=== PATIENT | female | born 1960 | race American Indian/Alaskan Native ===

== ENCOUNTER 2016-04-11 10:04 | Outpatient (CLI) | payer BC ==
--- NOTE | 2016-04-11 15:57 | Ultrasound Report ---
BILATERAL DIGITAL DIAGNOSTIC MAMMOGRAM and BILATERAL BREAST ULTRASOUND: 04/11/16 10:04:00 CLINICAL: Recalled for bilateral asymmetries. COMPARISON:01/26/16 screening FINDINGS: Bilateral ML and spot compression MLO and CC views were performed. Low-density circumscribed asymmetries persist in the right breast and the left upper asymmetry persists on all views. Ultrasound of the right breast (including all four quadrants and the retroareolar area) was performed and demonstrated several benign cysts and no solid mass. A cyst at 12 o'clock 6 cm from the nipple measures 5 x 2 x 4 mm. A complex cyst at 2 o'clock six in meters from the nipple measures 1.1 x 0.4 x 0.8 cm and a cyst at 3 o'clock subareolar measures 1.1 x 0.5 x 1.5 cm. Ultrasound of the left breast (including all four quadrants and the retroareolar area) was performed. A retroareolar cluster of cysts measures 1.6 x 0.7 x 1.5 cm. No other cysts and no solid mass is posterior shadowing in the left breast. IMPRESSION: Bilateral benign cysts in a probably benign left mammographic asymmetry with no correlating ultrasound finding. BI-RADS CATEGORY: 3 - - Probably Benign RECOMMENDATION: Six month followup left mammogram and routine screening of the right breast. ACR BI-RADS MAMMOGRAPHIC CODES: 0 = Needs additional imaging evaluation; 1 = Negative; 2 = Benign; 3 = Probably benign; 4 = Suspicious; 5 = Malignant; 6 = Known biopsy-proven malignancy COMMENT: 1. Dense breast tissue, i.e., adenosis, fibrocystic changes, etc., may obscure an underlying neoplasm. 2. Approximately 10% of cancers are not detected with mammography. 3. A negative mammography report should not delay biopsy if a clinically suspicious mass is present. COMMENT: Patient follow-up letters are generated via our [employer] application.
== END 2016-04-11 10:05 | disposition home or self-care (01) ==
LOC: SPVWC 10:04
PROVIDERS: ATTEND Obstetrics & Gynecology
DX: N60.02 Solitary cyst of left breast (principal)
CPT/HCPCS: 76641; G0204; 77066

== ENCOUNTER 2016-09-30 14:21 | Outpatient (CLI) | payer BC ==
--- NOTE | 2016-09-30 15:09 | Mammography Report ---
Screening mammogram: Routine views compared to her prior exams in 2016 and early 2017. Bilateral asymmetry is are unchanged from prior exam. Multiple cysts were demonstrated on prior ultrasound. No new findings. No calcifications and no architectural distortion. CAD used. Impression: Stable breast pattern. No suspicious findings. Recommendation: Annual mammogram followup. BI-RADS CATEGORY: 2 = Benign ACR BI-RADS MAMMOGRAPHIC CODES: 0 = Needs additional imaging evaluation; 1 = Negative; 2 = Benign; 3 = Probably benign; 4 = Suspicious; 5 = Malignant; 6 = Known biopsy-proven malignancy COMMENT: 1. Dense breast tissue, i.e., adenosis, fibrocystic changes, etc., may obscure an underlying neoplasm. 2. Approximately 10% of cancers are not detected with mammography. 3. A negative mammography report should not delay biopsy if a clinically suspicious mass is present.
== END 2016-09-30 14:22 | disposition home or self-care (01) ==
LOC: SPVWC 14:21
PROVIDERS: ATTEND Obstetrics & Gynecology
DX: Z12.31 Encounter for screening mammogram for malignant neoplasm of breast (principal)
CPT/HCPCS: 77067; G0202

== ENCOUNTER 2017-05-19 02:22 | Emergency (ER) | payer BC ==
--- NOTE | 2017-05-19 03:14 | XRay Report ---
FINAL REPORT EXAM: XR CHEST ROUTINE 2V HISTORY: Shortness of breath COMPARISON: None available. FINDINGS:: Frontal and lateral views of the chest obtained. Cardiac silhouette is within normal limits. No focal consolidation or effusion. No pneumothorax. Visualized bony thorax is grossly intact. IMPRESSION:: No acute findings.
[2017-05-19 04:03] LABS: Basophils % (Auto) 0.2 % (0.0-1.8); Eosinophils # (Auto) 0.1 K/mm3 (0.0-0.4); Eosinophils % (Auto) 1.7 % (0.0-4.3); Hematocrit 36.9 % (30.3-42.9); Lymphocytes # (Auto) 2.9 K/mm3 (1.2-5.4); Lymphocytes % (Auto) 41.6 % (13.4-35.0); Mean Corpuscular HGB Conc 33 % (30-34); Mean Corpuscular Hemoglobin 26 pg (28-32); Mean Corpuscular Volume 81 fl (79-97); Monocytes # (Auto) 0.3 K/mm3 (0.0-0.8); Monocytes % (Auto) 4.6 % (0.0-7.3); Platelet Count 131 K/mm3 (140-440); Red Blood Count 4.55 M/mm3 (3.65-5.03); Red Cell Distribution Width 13.7 % (13.2-15.2)
[2017-05-19 04:23] LABS: Alanine Aminotransferase 14 units/L (7-56); Albumin 4.3 g/dL (3.9-5); BUN/Creatinine Ratio 17; Blood Urea Nitrogen 12 mg/dL (7-17); Calcium 9.3 mg/dL (8.4-10.2); Hemolysis Index 4
[2017-05-19 09:37] VITALS: BP 138/78
== END 2017-05-19 09:00 | disposition left against medical advice (07) ==
LOC: ED 02:22
DX: R07.9 Chest pain, unspecified (principal); Z53.21 Procedure and treatment not carried out due to patient leaving prior to being seen by health care provider
CPT/HCPCS: 36415; 71046; 80053; 84484; 85025; 93005; 93010

== ENCOUNTER 2017-11-14 16:04 | Emergency (ER) | payer BC ==
[2017-11-14 17:29] LABS: Basophils % (Auto) 0.4 % (0.0-1.8); Eosinophils # (Auto) 0.1 K/mm3 (0.0-0.4); Eosinophils % (Auto) 1.8 % (0.0-4.3); Hematocrit 41.5 % (30.3-42.9); Hemoglobin 13.4 gm/dl (10.1-14.3); Lymphocytes # (Auto) 2.7 K/mm3 (1.2-5.4); Mean Corpuscular HGB Conc 32 % (30-34); Mean Corpuscular Hemoglobin 26 pg (28-32); Mean Corpuscular Volume 82 fl (79-97); Monocytes # (Auto) 0.3 K/mm3 (0.0-0.8); Monocytes % (Auto) 4.7 % (0.0-7.3); Platelet Count 138 K/mm3 (140-440); Red Blood Count 5.08 M/mm3 (3.65-5.03); Red Cell Distribution Width 13.2 % (13.2-15.2)
[2017-11-14 17:42] LABS: Alanine Aminotransferase 13 units/L (7-56); Albumin 4.6 g/dL (3.9-5); BUN/Creatinine Ratio 19; Blood Urea Nitrogen 15 mg/dL (7-17); Calcium 10.4 mg/dL (8.4-10.2); Hemolysis Index 6
--- NOTE | 2017-11-14 19:42 | Emergency Department Report ---
- General Chief complaint: Weakness Stated complaint: DIZINESS, NAUSEA Time Seen by Provider: 11/14/17 19:42 Source: patient Mode of arrival: Ambulatory Limitations: No Limitations - History of Present Illness MD Complaint: generalized weakness, lack of energy -: Gradual Location: generalized Severity: Unable to Determine Consistency: constant Improves with: none Worsens with: none Associated Symptoms: other (Nausea) - Related Data Previous Rx's Medication Instructions Recorded Last Taken Type Ondansetron [Zofran Odt] 4 mg PO Q8HR PRN #20 tab.rapdis 11/15/17 Unknown Rx Allergies Allergy/AdvReac Type Severity Reaction Status Date / Time No Known Allergies Allergy Verified 11/14/17 17:09 ED Review of Systems ROS: Stated complaint: DIZINESS, NAUSEA Other details as noted in HPI Comment: All other systems reviewed and negative Constitutional: denies: chills, fever Eyes: denies: eye pain ENT: denies: ear pain Respiratory: denies: cough, shortness of breath Cardiovascular: denies: chest pain, palpitations Endocrine: no symptoms reported Gastrointestinal: nausea. denies: abdominal pain, vomiting, diarrhea Genitourinary: denies: urgency, dysuria, frequency Musculoskeletal: denies: back pain Skin: denies: rash, lesions Neurological: weakness. denies: headache, numbness Psychiatric: denies: anxiety, depression Hematological/Lymphatic: denies: easy bleeding, easy bruising ED Past Medical Hx - Past Medical History Hx Diabetes: Yes - Surgical History Past Surgical History?: No - Social History Smoking Status: Never Smoker Substance Use Type: None - Medications Home Medications: Home Medications Medication Instructions Recorded Confirmed Last Taken Type Ondansetron [Zofran Odt] 4 mg PO Q8HR PRN #20 tab.rapdis 11/15/17 Unknown Rx ED Physical Exam - General Limitations: No Limitations General appearance: alert, in no apparent distress - Head Head exam: Present: atraumatic, normocephalic, normal inspection - Eye Eye exam: Present: normal appearance, PERRL, EOMI Pupils: Present: normal accommodation - ENT ENT exam: Present: normal exam, normal orophraynx, mucous membranes moist - Neck Neck exam: Present: normal inspection, full ROM. Absent: tenderness - Respiratory Respiratory exam: Present: normal lung sounds bilaterally. Absent: respiratory distress, wheezes, rales, rhonchi, stridor - Cardiovascular Cardiovascular Exam: Present: regular rate, normal rhythm, normal heart sounds - GI/Abdominal GI/Abdominal exam: Present: soft, normal bowel sounds. Absent: distended, tenderness, guarding, rebound, rigid - Extremities Exam Extremities exam: Present: normal inspection, full ROM, normal capillary refill. Absent: tenderness - Back Exam Back exam: Present: normal inspection, full ROM. Absent: tenderness - Neurological Exam Neurological exam: Present: alert, oriented X3, CN II-XII intact - Psychiatric Psychiatric exam: Present: normal affect, normal mood. Absent: depressed - Skin Skin exam: Present: warm, dry, intact, normal color. Absent: rash - Assessment Assessment Interval: Baseline - Level of Consciousness 1a. Level of Consciousness: alert - LOC Questions 1b. LOC Questions: answers correctly - LOC Command 1c. LOC Commands: performs tasks correctly - Best Gaze 2. Best Gaze: normal - Visual 3. Visual: no visual loss - Facial Palsy 4. Facial Palsy: normal symmetrical movement - Motor Arm 5b. Motor Arm Right: no drift 5a. Motor Arm Left: no drift - Motor Leg 6a. Motor Leg Left: no drift 6b. Motor Leg Right: no drift - Limb Ataxia 7. Limb Ataxia: absent - Sensory 8. Sensory: normal - Best Language 9. Best Language: no aphasia - Dysarthria 10. Dysarthria: normal - Extinction and Inattention 11. Extinction/Inattention: no abnormality - Scoring Total Score: 0 Stroke Severity: No Stroke Symptoms ED Course Vital Signs 11/14/17 11/14/17 11/14/17 17:09 20:03 21:00 Temperature 98.1 F 97.7 F Pulse Rate 81 64 Respiratory 16 20 Rate Blood Pressure 131/73 127/67 Blood Pressure 118/65 [Left] O2 Sat by Pulse 97 99 100 Oximetry 11/14/17 11/14/17 11/15/17 22:00 23:00 00:00 Temperature Pulse Rate Respiratory Rate Blood Pressure 120/57 120/70 107/62 Blood Pressure [Left] O2 Sat by Pulse 100 100 100 Oximetry ED Medical Decision Making - Lab Data Result diagrams: 11/14/17 17:18 11/15/17 01:43 - EKG Data -: EKG Interpreted by Me EKG shows normal: sinus rhythm Rate: normal (69) - EKG Data When compared to previous EKG there are: previous EKG unavailable Interpretation: other (Low voltage, Non specific T wave changes.) - Radiology Data Radiology results: report reviewed, image reviewed - Medical Decision Making Generalized Weakness. Critical care attestation.: If time is entered above; I have spent that time in minutes in the direct care of this critically ill patient, excluding procedure time. ED Disposition Clinical Impression: Generalized weakness Diabetes mellitus Qualifiers: Diabetes mellitus type: type 2 Diabetes mellitus vermin exterminator insulin use: unspecified usp insulin use status Diabetes mellitus complication status: with unspecified complications Qualified Code(s): E11.8 - Type 2 diabetes mellitus with unspecified complications Disposition: TO HOME OR SELFCARE Is pt being admited?: No Does the pt Need Aspirin: No Condition: Stable Instructions: Diabetes Mellitus Type 2 in Adults (ED) Additional Instructions: Follow up with your regular doctor on Friday. Return to the ED if your condition worsens. Prescriptions: Ondansetron [Zofran Odt] 4 mg PO Q8HR PRN #20 tab.rapdis PRN Reason: Nausea And Vomiting Referrals: PRIMARY CARE, [Primary Care Provider] - 3-5 Days Time of Disposition: 02:49
[2017-11-14] MEDS ORDERED: NACL 0.9% 1000 ML 1,000 ML IV ONE ×2 (19:45)
[2017-11-14 20:31] LABS: Lipase 25 units/L (13-60)
--- NOTE | 2017-11-14 20:56 | XRay Report ---
FINAL REPORT EXAM: XR CHEST 1V AP HISTORY: weakness TECHNIQUE: X-ray chest, one view Comparison: Chest x-ray dated May 19, 2017 FINDINGS: There is no evidence of infiltrate, pneumothorax or pleural fluid collection. The cardiomediastinal silhouette is normal in appearance. The bony structures are unremarkable. IMPRESSION: 1. No evidence of an acute pulmonary process.
--- NOTE | 2017-11-14 21:22 | Cat Scan Report ---
FINAL REPORT PROCEDURE: CT HEAD/BRAIN WO CON TECHNIQUE: Computerized tomography of the head was performed without contrast material. HISTORY: Weakness COMPARISON: No prior studies are available for comparison. FINDINGS: Brain: Brain density appears normal. No evidence of intracranial hemorrhage. No parenchymal hemorrhage, mass lesions or mass effect are seen. No abnormal extraxial fluid collects or masses are seen. Ventricles: Ventricles are normal size and are midline. Bone Windows: No evidence of skull fracture. Paranasal sinuses: Visualized portions appear clear. Mastoid air cells: Clear IMPRESSION: Negative examination
[2017-11-14 21:26] LABS: Bilirubin,Urine NEG (Negative); Blood,Urine NEG (Negative); Color,Urine Yellow (Yellow); WBC,Urine < 1.0 /HPF (0.0-6.0)
--- NOTE | 2017-11-14 21:34 | Cat Scan Report ---
FINAL REPORT PROCEDURE: CT ABDOMEN PELVIS W CON TECHNIQUE: Computerized axial tomography of the abdomen and pelvis was performed after the IV injection of iodinated nonionic contrast. HISTORY: Abdominal pain COMPARISON: No prior studies are available for comparison. FINDINGS: Lower Lung palm: Clear. Upper Abdomen: The liver, the gallbladder, the adrenal glands and spleen are unremarkable. The pancreas is diffusely atrophied and contains multiple coarse calcifications consistent with chronic pancreatitis. Pancreas is otherwise unremarkable. Kidneys, Ureters and Urinary bladder: Kidneys and ureters are unremarkable. Urinary bladder is nearly empty and difficult to characterize although shows no gross abnormality per Retroperitoneum: Atherosclerotic changes are seen in the abdominal aorta and iliac arteries. No aneurysm is visualized. Nonspecific subcentimeter lymph nodes are seen in the retroperitoneum. No pathologically enlarged lymph nodes are identified. Bowel: Large amount of stool seen throughout most of the colon. The rectum is distended with stool. The patient appears to be constipated. Bowel loops otherwise are unremarkable. There is no ascites or free intraperitoneal gas. Normal-appearing appendix is seen in the right lower quadrant. The appendix is measures eyes on the coronal images. Reproductive organs: Uterus is surgically absent. No abnormal adnexal masses are identified. Other: No acute bony abnormalities are seen. IMPRESSION: Stool pattern as described. The patient appears to be constipated. Chronic pancreatitis. Please see above comments. Prior hysterectomy.
[2017-11-14] MEDS ORDERED: HumuLIN R IV ONE (22:39)
[2017-11-15 00:47] VITALS: BP 107/62
[2017-11-15 01:09] LABS: BUN/Creatinine Ratio 19; Blood Urea Nitrogen 15 mg/dL (7-17); Calcium 10.5 mg/dL (8.4-10.2); Hemolysis Index 41
[2017-11-15 02:32] LABS: BUN/Creatinine Ratio 17; Blood Urea Nitrogen 12 mg/dL (7-17); Calcium 9.2 mg/dL (8.4-10.2); Hemolysis Index 2
== END 2017-11-15 03:13 | disposition home or self-care (01) ==
LOC: ED 16:04
DX: E11.8 Type 2 diabetes mellitus with unspecified complications (principal); R42 Dizziness and giddiness; M62.81 Muscle weakness (generalized); K59.00 Constipation, unspecified; Z79.4 Long term (current) use of insulin; Z79.899 Other long term (current) drug therapy
CPT/HCPCS: 36415; 70450; 71045; 74177; 80048; 80053; 81001; 82550; 82962; 83690; 83880; 84443; 84484; 85025; 93005; 93010; 96361; 96374; 99285; J7030; Q9967; J1815